=== PATIENT | female | born 1955 ===

== ENCOUNTER 2016-08-24 19:43 | Observation (INO) | payer MEDICARE, OTHER ==
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
[2016-08-24 20:14] LABS: HEMOGLOBIN 11.9 gm/dL (12.0-16.0); MEAN CELL VOLUME 95.7 fL (80.0-105.0); MEAN CORPUSCULAR HEMOGLOBIN 31.7 pg (25.0-35.0); MEAN CORPUSCULAR HGB CONC 33.1 g/dl (31.0-37.0); MEAN PLATELET VOLUME 10.6 fl (7.0-11.0); RBC 3.75 10^6/uL (3.5-6.1); RED CELL DISTRIBUTION WIDTH 13.5 % (11.5-14.5); WHITE BLOOD COUNT 6.5 10^3/ul (4.5-11.0)
[2016-08-24 20:25] LABS: ALB/GLOB RATIO 1.1 (1.1-1.8); ALBUMIN 3.9 g/dL (3.0-4.8); ALT/SGPT 65 U/L (7-56); AST/SGOT 51 U/L (15-39); BLOOD UREA NITROGEN 23 mg/dL (7-21); CALCIUM 9.2 mg/dL (8.4-10.5); GFR AFRICAN-AMERICAN > 60; GFR NON-AFRICAN AMERICAN > 60; INR 0.94 (0.93-1.08); PARTIAL THROMBOPLASTIN TIME 26.6 Seconds (23.7-30.8); PROTHROMBIN TIME 10.1 Seconds (9.9-11.8)
[2016-08-24 20:37] LABS: B-TYPE NATRIURETIC PEPTIDE 203 pg/mL (0-450); TROPONIN I < 0.01 ng/mL
[2016-08-25 01:34] VITALS: RESP 20; BMI 37.5
--- NOTE | 2016-08-25 04:07 | CP.PCM.PN ---
Subjective - Date & Time of Evaluation Date of Evaluation: 08/25/16 Time of Evaluation: 04:07 - Subjective Subjective: Patient was seen because she had requested pain medication for pain in hands. When I saw her, she also asked for some medication to help her fall asleep stating that she takes xanax at home. She also stated that she has seep apnea and she is on CPAP at home. Has no other complaints. Medical record was reviewed. This 60 year old white woman was admitted with intermittent chest discomfort. Has PMH of HTN, Asthma, Hypothyroidism , bipolar disorder. Objective - Vital Signs/Intake and Output Vital Signs (last 24 hours): Temp Pulse Resp BP Pulse Ox 97.9 F 76 20 145/76 94 L 08/25/16 00:39 08/25/16 02:00 08/25/16 00:39 08/25/16 00:39 08/25/16 00:00 - Medications Medications: Current Medications Alprazolam (Xanax) 0.25 mg PO ONCE STA Stop: 08/25/16 04:07 - Labs Labs: PT 10.1 Seconds (9.9-11.8) 08/24/16 20:00 INR 0.94 (0.93-1.08) 08/24/16 20:00 APTT 26.6 Seconds (23.7-30.8) 08/24/16 20:00 Most Recent Lab Values WBC 6.5 10^3/ul (4.5-11.0) 08/24/16 20:00 RBC 3.75 10^6/uL (3.5-6.1) 08/24/16 20:00 Hgb 11.9 gm/dL (12.0-16.0) L 08/24/16 20:00 Hct 35.9 % (36.0-48.0) L 08/24/16 20:00 MCV 95.7 fL (80.0-105.0) 08/24/16 20:00 MCH 31.7 pg (25.0-35.0) 08/24/16 20:00 MCHC 33.1 g/dl (31.0-37.0) 08/24/16 20:00 RDW 13.5 % (11.5-14.5) 08/24/16 20:00 Plt Count 230 10^3/uL (120.0-450.0) 08/24/16 20:00 MPV 10.6 fl (7.0-11.0) 08/24/16 20:00 PT 10.1 Seconds (9.9-11.8) 08/24/16 20:00 INR 0.94 (0.93-1.08) 08/24/16 20:00 APTT 26.6 Seconds (23.7-30.8) 08/24/16 20:00 Sodium 137 mmol/L (132-148) 08/24/16 20:00 Potassium 4.1 mmol/L (3.6-5.0) 08/24/16 20:00 Chloride 99 mmol/L (98-107) 08/24/16 20:00 Carbon Dioxide 29 mmol/L (21-33) 08/24/16 20:00 Anion Gap 13 (10-20) 08/24/16 20:00 BUN 23 mg/dL (7-21) H 08/24/16 20:00 Creatinine 0.6 mg/dL (0.5-1.4) 08/24/16 20:00 Est GFR ( Amer) > 60 08/24/16 20:00 Est GFR (Non-Af Amer) > 60 08/24/16 20:00 Random Glucose 129 mg/dL (70-110) H 08/24/16 20:00 Calcium 9.2 mg/dL (8.4-10.5) 08/24/16 20:00 Total Bilirubin 0.6 mg/dL (0.2-1.3) 08/24/16 20:00 AST 51 U/L (15-39) H 08/24/16 20:00 ALT 65 U/L (7-56) H 08/24/16 20:00 Alkaline Phosphatase 89 U/L (38-133) 08/24/16 20:00 Lactate Dehydrogenase 640 U/L (333-699) 08/24/16 20:00 Total Creatine Kinase 94 U/L (35-230) 08/24/16 20:00 Troponin I < 0.01 ng/mL 08/24/16 20:00 NT-Pro-B Natriuret Pep 203 pg/mL (0-450) 08/24/16 20:00 Total Protein 7.6 g/dL (5.8-8.3) 08/24/16 20:00 Albumin 3.9 g/dL (3.0-4.8) 08/24/16 20:00 Globulin 3.7 gm/dL 08/24/16 20:00 Albumin/Globulin Ratio 1.1 (1.1-1.8) 08/24/16 20:00 - Constitutional Appears: Well, No Acute Distress - Head Exam Head Exam: ATRAUMATIC, NORMAL INSPECTION, NORMOCEPHALIC - Eye Exam Eye Exam: Normal appearance - ENT Exam ENT Exam: Normal External Ear Exam - Neck Exam Neck Exam: Normal Inspection - Respiratory Exam Respiratory Exam: NORMAL BREATHING PATTERN - Cardiovascular Exam Cardiovascular Exam: absent: JVD - GI/Abdominal Exam GI & Abdominal Exam: absent: Distended - Rectal Exam Rectal Exam: Deferred - Extremities Exam Extremities Exam: Normal Inspection - Back Exam Back Exam: NORMAL INSPECTION - Neurological Exam Neurological Exam: Alert, Oriented x3 - Psychiatric Exam Psychiatric exam: Normal Affect, Normal Mood - Skin Skin Exam: Normal Color Assessment and Plan - Assessment and Plan (Free Text) Assessment: Hands pain. Insomnia-adjustment. Hypertension. Hypothyroidism. Asthma. Bipolar disorder. Plan: Tylenol 650 mg PO x 1. Xanax 0.25 mg PO x 1. Continue as per plan of PMD.
[2016-08-25 06:34] VITALS: O2SAT 95
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
--- NOTE | 2016-08-25 07:22 | RAD ---
HISTORY: chest pain COMPARISON: 04/01/2015 FINDINGS: LUNGS: Under current apical lordotic projection of a nodular opacity projects over the left lung base-left lateral heart border and posterior left 8th rib -its etiology/significance is unknown. Pulmonary nodule, summation shadows or intrinsic interval rib pathology some considerations. It is too high for left nipple shadow this patient with pendulous breasts PLEURA: No significant pleural effusion identified, no pneumothorax apparent. CARDIOVASCULAR: Given the apical lordotic projection the heart size is probably top-normal. Mild central pulmonary venous congestion is possible with history (Versus crowding -given shallow inspiration) OSSEOUS STRUCTURES: Thoracic spondylosis. Bilateral shoulder arthrosis VISUALIZED UPPER ABDOMEN: Normal. OTHER FINDINGS: Surgical metallic clips project over the central neck IMPRESSION: Limited exam given shallow inspiration an apical lordotic projection. Interval left basal nodular opacity- significance, if any, unknown-considerations above . Consider repeat chest x-ray PA upright when patient can tolerate. Noncontrast CT chest -more sensitive Possible mild pulmonary venous congestion. No infiltrate
[2016-08-25 08:34] LABS: ALB/GLOB RATIO 1.1 (1.1-1.8); ALBUMIN 3.5 g/dL (3.0-4.8); ALT/SGPT 58 U/L (7-56); AST/SGOT 43 U/L (15-39); BLOOD UREA NITROGEN 18 mg/dL (7-21); CALCIUM 9.1 mg/dL (8.4-10.5); GFR AFRICAN-AMERICAN > 60; GFR NON-AFRICAN AMERICAN > 60
[2016-08-25 08:57] LABS: TROPONIN I < 0.01 ng/mL
[2016-08-25] MEDS ORDERED: Levothyroxine 88 MCG TAB PO SCH (10:00)
[2016-08-25] MEDS ORDERED: ZIPRASIDONE HCL 40 MG PO SCH (10:00)
[2016-08-25] MEDS ORDERED: Divalproex 250 mg DR (BID formulation) PO SCH (10:00)
[2016-08-25 12:01] VITALS: BP 117/60; PULSE 69; TEMP 97.9
--- NOTE | 2016-08-25 16:42 | CARD ---
APPROVED REPORT EKG Measurement Heart [id number] <Conclusion> Normal sinus rhythm Nonspecific T wave abnormality Abnormal ECG
--- NOTE | 2016-08-25 18:12 | US ---
HISTORY: Leg pain and swelling. Evaluate for DVT PHYSICIAN(S): Russ Joseph MD. TECHNIQUE: Duplex sonography and color-flow Doppler with graded compression were used to evaluate the deep venous systems of both lower extremities. The exam is limited by edema. FINDINGS: The visualized deep venous systems of both lower extremities are sonographically normal and compressible. Normal wave forms and augmentation are seen. There is no sonographic evidence for deep venous thrombosis in the visualized segments of both lower extremities. IMPRESSION: No sonographic evidence for deep venous thrombosis in the visualized segments of both lower extremities. Limited exam.
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
== END 2016-08-25 16:11 | disposition home or self-care (01) ==
LOC: ED 19:43 → ERH 21:45 → 2RNO 23:10
PROVIDERS: ADMIT Family Medicine; ATTEND Family Medicine
DX: R07.89 Other chest pain (principal); M79.643 Pain in unspecified hand; I10 Essential (primary) hypertension; E03.9 Hypothyroidism, unspecified; J45.909 Unspecified asthma, uncomplicated; F31.9 Bipolar disorder, unspecified; F51.02 Adjustment insomnia; Z88.6 Allergy status to analgesic agent; Z88.0 Allergy status to penicillin
CPT/HCPCS: 36415; 71010; 80053; 82550; 83615; 83880; 84484; 85027; 85610; 85730; 93005; 93970; 99285; G0378; J1940